=== PATIENT | male | born 1960 | race Two or more races ===

== ENCOUNTER 2016-04-18 20:13 | Inpatient (IN) | payer MEDICARE, MEDICAID ==
[2016-04-18 20:33] VITALS: BP 127/76
[2016-04-18] MEDS ORDERED: Ipratropium Neb 0.5 mg/2.5 mL UD IH PRN (20:52)
[2016-04-18] MEDS ORDERED: Maalox 30 mL Cup PO PRN (20:52)
[2016-04-18] MEDS ORDERED: Albuterol Nebulizer 2.5mg/3mL IH PRN (20:52)
[2016-04-18] MEDS ORDERED: Potassium Chloride 20 mEq ER Tab PO ONE ×2 (20:52→21:20)
[2016-04-18] MEDS: Morphine Sulfate 2 mg/mL 1mL Syr IVP PRN (21:25)
[2016-04-18 22:39] LABS: URINE BILIRUBIN SMALL (NEGATIVE); URINE COLOR ORANGE; URINE GLUCOSE (UA) NEGATIVE (NEGATIVE); URINE KETONE TRACE mg/dL (NEGATIVE)
[2016-04-18 22:40] LABS: URINE BACTERIA OCCASIONAL /hpf (NONE SEEN); URINE BLOOD NEGATIVE (NEGATIVE); URINE EPITHELIAL CELLS OCCASIONAL /lpf (FEW); URINE PH 5.5; URINE PROTEIN 30 mg/dL (NEGATIVE); URINE RBC 0-2 /hpf (0-5); URINE WBC 0-2 /hpf (0-5)
[2016-04-19] MEDS: Morphine Sulfate 2 mg/mL 1mL Syr IVP PRN ×6 (01:35→22:41)
[2016-04-19 05:31] LABS: INR 1.19 (0.5-1.4); PROTHROMBIN TIME (TEST) 11.9 SECONDS (9.5-11.5)
[2016-04-19 05:37] LABS: ALB/GLOB RATIO 0.9 (1.0-1.8); ALKALINE PHOSPHATASE 159 U/L (34-104); ANION GAP 5.5 (7.0-16.0); BUN - UREA NITROGEN 22 mg/dL (7-25); BUN/CREATININE RATIO 36.7; CALCIUM SERUM 8.1 mg/dL (8.6-10.3); CARBON DIOXIDE 23.3 mEq/L (21.0-31.0); CHLORIDE 111 mEq/L (98-107); CREATININE - SERUM 0.6 mg/dL (0.7-1.3); GLUCOSE 114 mg/dL (70-105); POTASSIUM SERUM 3.8 mEq/L (3.5-5.1); SGOT 50 U/L (13-39); SGPT/ALT 24 U/L (7-52); SODIUM SERUM 136 mEq/L (136-145)
[2016-04-19 06:25] LABS: MEAN CORPUSCULAR HEMOGLOBIN 21.4 pg (26.0-30.0); MEAN CORPUSCULAR HGB CONC 31.7 pg (28.0-36.0); RED BLOOD COUNT 3.27 Mil/cmm (4.30-5.70)
[2016-04-19 06:29] LABS: HEMATOCRIT 22.1 % (39.0-49.0); MEAN CELL VOLUME 67.5 fl (80-99)
[2016-04-19 06:33] LABS: BNP 16.4 pg/mL (5.0-100.0)
[2016-04-19 06:38] LABS: TSH 3.46 uIU/ml (0.34-5.60)
[2016-04-19 07:56] LABS: PLATELET COUNT 52 Th/cmm (150-400)
[2016-04-19 08:00] LABS: BAND NEUTROPHILE 2 % (0-10); BASOPHIL 3 % (0-3); EOSINOPHIL 2 % (0-5); NEUTROPHILS 55 % (40-80); TOTAL CELLS COUNTED 100
[2016-04-19 08:01] LABS: ANISOCYTOSIS 1+; HYPOCHROMIA 1+; MICROCYTOSIS 3+; PLATELET ESTIMATE DECREASED PLATELETS (NORMAL); PLATELET MORPHOLOGY GIANT PLATELETS SEEN (NORMAL); POLYCHROMASIA 1+
[2016-04-19] MEDS: Potassium Chloride 20 mEq ER Tab PO SCH (08:15)
--- NOTE | 2016-04-19 09:54 | Diagnostic Imaging Report ---
CHEST X-RAY: AP view INDICATION: Pneumonia COMPARISON: None FINDINGS: Low lung volumes are seen. No focal consolidation or pleural effusions. Heart size is normal. Osseous structures are intact. IMPRESSION: Low lung volumes. No focal consolidation identified.
--- NOTE | 2016-04-19 11:48 | Diagnostic Imaging Report ---
Ultrasound abdomen HISTORY: Cirrhosis, provided history of cholecystectomy COMPARISON: None Technique: Sonography of the abdomen was performed in multiple planes. FINDINGS: Exam is limited due to bowel gas. The liver demonstrates increased echogenicity with irregular borders. The liver measures 13 cm. No obvious focal lesions identified. The gallbladder was not visualized. The common bile duct measures 9 mm. Assessment of the pancreas is limited due to bowel gas. The right kidney measures 12.3 cm. The left kidney measures 11.5 cm. No evidence of focal lesions or hydronephrosis. The spleen is enlarged measuring 17 cm. Moderate amount of ascites is noted, greatest within the upper abdomen. IMPRESSION: Moderate ascites greatest along the upper abdomen. Splenomegaly. Mild decreased liver size with irregular borders which may reflect underlying cirrhotic changes. Nonvisualization of the gallbladder compatible patient's clinical history of cholecystectomy. The common bile duct measures 9 mm, prominent for patient's age but may be related to patient's cholecystectomy procedure. Consider follow-up with indicated.
--- NOTE | 2016-04-19 14:26 | Internal Medicine Prog Note ---
Internal Medicine Subjective - Subjective Service Date: 04/19/16 ([id number]) Internal Medicine Objective - Results Result Diagrams: 04/19/16 05:59 04/19/16 04:49 Recent Labs: Laboratory Last Values WBC 2.0 Th/cmm (4.8-10.8) L* 04/19/16 05:59 RBC 3.27 Mil/cmm (4.30-5.70) L 04/19/16 05:59 Hgb 7.0 gm/dL (13.2-17.3) L* 04/19/16 05:59 Hct 22.1 % (39.0-49.0) L* 04/19/16 05:59 MCV 67.5 fl (80-99) L 04/19/16 05:59 MCH 21.4 pg (26.0-30.0) L 04/19/16 05:59 MCHC Differential 31.7 pg (28.0-36.0) 04/19/16 05:59 RDW 21.0 % (11.5-20.0) H 04/19/16 05:59 Plt Count 52 Th/cmm (150-400) L 04/19/16 05:59 MPV 10.0 fl 04/19/16 05:59 Band Neutrophils % 2 % (0-10) 04/19/16 05:59 Neutrophils (Manual) 55 % (40-80) 04/19/16 05:59 Lymphocytes 28 % (20-50) 04/19/16 05:59 Monocytes 10 % (2-10) 04/19/16 05:59 Eosinophils 2 % (0-5) 04/19/16 05:59 Basophils 3 % (0-3) 04/19/16 05:59 Smudge Cells 1+ 04/19/16 05:59 Hypochromia 1+ 04/19/16 05:59 Platelet Estimate DECREASED PLATELETS (NORMAL) 04/19/16 05:59 Platelet Morphology GIANT PLATELETS SEEN (NORMAL) 04/19/16 05:59 Polychromasia 1+ 04/19/16 05:59 Anisocytosis 1+ 04/19/16 05:59 Microcytosis 3+ 04/19/16 05:59 RBC Morph Micro Appear ABNORMAL (NORMAL) 04/19/16 05:59 PT 11.9 SECONDS (9.5-11.5) H 04/19/16 04:49 INR 1.19 (0.5-1.4) 04/19/16 04:49 PTT (Actin FS) 29.8 SECONDS (26.0-38.0) 04/19/16 04:49 Sodium 136 mEq/L (136-145) 04/19/16 04:49 Potassium 3.8 mEq/L (3.5-5.1) 04/19/16 04:49 Chloride 111 mEq/L (98-107) H 04/19/16 04:49 Carbon Dioxide 23.3 mEq/L (21.0-31.0) 04/19/16 04:49 Anion Gap 5.5 (7.0-16.0) L 04/19/16 04:49 BUN 22 mg/dL (7-25) 04/19/16 04:49 Creatinine 0.6 mg/dL (0.7-1.3) L 04/19/16 04:49 Est GFR ( Amer) > 60.0 ml/min 04/19/16 04:49 Est GFR (Non-Af Amer) > 60.0 ml/min 04/19/16 04:49 BUN/Creatinine Ratio 36.7 04/19/16 04:49 Glucose 114 mg/dL (70-105) H 04/19/16 04:49 Calcium 8.1 mg/dL (8.6-10.3) L 04/19/16 04:49 Magnesium 2.0 mg/dL (1.9-2.7) 04/19/16 04:49 Total Bilirubin 1.0 mg/dL (0.3-1.0) 04/19/16 04:49 AST 50 U/L (13-39) H 04/19/16 04:49 ALT 24 U/L (7-52) 04/19/16 04:49 Alkaline Phosphatase 159 U/L (34-104) H 04/19/16 04:49 Ammonia 101 umol/L (16-53) H 04/19/16 04:49 B-Natriuretic Peptide 16.4 pg/mL (5.0-100.0) 04/19/16 04:49 Total Protein 5.7 gm/dL (6.0-8.3) L 04/19/16 04:49 Albumin 2.7 gm/dL (4.2-5.5) L 04/19/16 04:49 Globulin 3.0 gm/dL 04/19/16 04:49 Albumin/Globulin Ratio 0.9 (1.0-1.8) L 04/19/16 04:49 TSH 3.46 uIU/ml (0.34-5.60) 04/19/16 04:49 Urine Source CLEAN C 04/18/16 21:30 Urine Color ORANGE 04/18/16 21:30 Urine Clarity HAZY (CLEAR) 04/18/16 21:30 Urine pH 5.5 04/18/16 21:30 Ur Specific [place] 1.72887 (1.005-1.030) H 04/18/16 21:30 Urine Protein 30 mg/dL (NEGATIVE) H 04/18/16 21:30 Urine Glucose (UA) NEGATIVE mg/dL (NEGATIVE) 04/18/16 21:30 Urine Ketones TRACE mg/dL (NEGATIVE) 04/18/16 21:30 Urine Blood NEGATIVE (NEGATIVE) 04/18/16 21:30 Urine Nitrate NEGATIVE (NEGATIVE) 04/18/16 21:30 Urine Bilirubin SMALL (NEGATIVE) H 04/18/16 21:30 Urine Ictotest POSITIVE (NEGATIVE) H 04/18/16 21:30 Urine Urobilinogen 1.0 E.U./dL (0.2 - 1.0) 04/18/16 21:30 Ur Leukocyte Esterase NEGATIVE (NEGATIVE) 04/18/16 21:30 Urine RBC 0-2 /hpf (0-5) H 04/18/16 21:30 Urine WBC 0-2 /hpf (0-5) 04/18/16 21:30 Ur Epithelial Cells OCCASIONAL /lpf (FEW) 04/18/16 21:30 Urine Bacteria OCCASIONAL /hpf (NONE SEEN) 04/18/16 21:30 Urine Mucus MODERATE /lpf (FEW) 04/18/16 21:30 HIV 1&2 Antibody Screen NEGATIVE (NEG) 04/19/16 04:49 - Physical Exam Vitals and I&O: Vital Signs Temp 98.1 F 04/19/16 12:00 Pulse 97 04/19/16 12:00 Resp 18 04/19/16 12:00 BP 111/65 04/19/16 12:00 Pulse Ox 96 04/19/16 12:00 Intake & Output 04/18/16 04/19/16 04/19/16 18:59 06:59 18:59 Intake Total 1300 Output Total 500 Balance 800 Weight (lbs) 229 lb Intake: Oral 1300 Output: Urine 500 Other: # Voids 3 Active Medications: Current Medications Acetaminophen (Tylenol) 650 mg PO Q4HR PRN PRN Reason: Pain or Fever >101 Stop: 06/17/16 20:51 Al Hydrox/Mg Hydrox/Simethicone (Maalox) 30 ml PO Q6HR PRN PRN Reason: Constipation Stop: 06/17/16 20:51 Albuterol Sulfate (Albuterol 2.5mg/3ml Neb Ud) 2.5 mg IH Q2HR PRN PRN Reason: Shortness of Breath or Wheeze Stop: 06/17/16 20:51 Furosemide (Lasix) 20 mg IVP BID [facility] Stop: 06/18/16 08:59 Last Admin: 04/19/16 08:16 Dose: 20 mg Ipratropium Martha (Atrovent Neb 0.5mg/2.5ml) 0.5 mg IH Q2HR PRN PRN Reason: Shortness of Breath or Wheeze Stop: 06/17/16 20:51 Meclizine HCl (Antivert) 25 mg PO DAILY PRN PRN Reason: Nausea / Vomiting Stop: 06/17/16 20:51 Morphine Sulfate (Morphine) 2 mg IVP Q4HR PRN PRN Reason: Pain (Severe) Stop: 06/17/16 20:51 Last Admin: 04/19/16 10:07 Dose: 2 mg Neomycin Sulfate (Neomycin) 500 mg PO Q6HR [facility] Stop: 06/18/16 00:00 Last Admin: 04/19/16 05:44 Dose: 500 mg Ondansetron HCl (Zofran) 4 mg IV Q8H PRN PRN Reason: Nausea / Vomiting Stop: 06/17/16 20:51 Potassium Chloride (Klor-Con) 20 meq PO DAILY [facility] Stop: 06/18/16 08:59 Last Admin: 04/19/16 08:15 Dose: 20 meq Spironolactone (Aldactone) 25 mg PO DAILY [facility] Stop: 06/18/16 08:59 Last Admin: 04/19/16 08:15 Dose: 25 mg Zolpidem Tartrate (Ambien) 10 mg PO HS PRN PRN Reason: Insomnia Stop: 06/17/16 20:51 Last Admin: 04/19/16 01:39 Dose: 10 mg Internal Medicine Assmt/Plan - Assessment Assessment: acute hepatic failure abdominal pain anemia
--- NOTE | 2016-04-19 15:47 | History & Physical ---
CHIEF COMPLAINT: Abdominal pain. HISTORY OF PRESENT ILLNESS: This is a 55-year-old male who is a direct admission from [facility]. According to the patient, he has been having a 1-week history of abdominal pain associated with nausea and vomiting and also testicular edema. He denied any pain. The patient also stated that his bilateral legs were also edematous. Denied any pain. The patient states that he has had this problem before, but never sought medical attention. Due to the severity of pain, the patient brought himself to the ER. Due to insurance purposes, the patient is now here at [facility]. PAST MEDICAL HISTORY: Diabetes, hypertension, hyperlipidemia. SOCIAL HISTORY: The patient was a heavy drinker, states that he quit 7 years ago when he was newly diagnosed with diabetes. Denied any tobacco or any drug usage. ALLERGIES: No drug allergies. FAMILY HISTORY: Noncontributory. REVIEW OF SYSTEMS: GENERAL: Denies any fever, any chills. CARDIOVASCULAR: Denies any chest pain. RESPIRATORY: He complains of off and on shortness of breath. GASTROINTESTINAL: Complaints of abdominal pain. Denies any nausea, vomiting at this time. GENITOURINARY: Denies any dysuria. All other systems are reviewed by me are negative. PHYSICAL EXAMINATION: GENERAL: The patient is well developed, well nourished, in no acute distress. VITAL SIGNS: Temperature 98.1, heart rate 97, blood pressure 111/65, respirations 18, O2 96%. HEENT: Head; normocephalic, atraumatic. NECK: Supple. No mass. LUNGS: Few rhonchi bilaterally upon auscultation. HEART: Regular rate and rhythm. No murmurs or gallops. SKIN: Intact, warm and dry to touch. ABDOMEN: Soft, nontender, nondistended. Positive bowel sounds in all 4 quadrants. LABORATORY DATA: WBC 2.0, H and H 7.0 and 22.1. Sodium 136, potassium 3.8, BUN 22, creatinine 0.6, magnesium 2.0. HIV 1 and 2 is negative. DIAGNOSTICS: The patient had a chest x-ray done and the impression is low lung volumes. The patient also had an abdominal ultrasound done and the impression is moderate ascites, greatest along the upper abdomen, splenomegaly. ASSESSMENT: 1. Acute hepatic failure, abdominal pain. 2. History of chronic alcoholism. PLAN: The patient will be admitted to the telemetry unit. The patient will have a consultation with Dr. Snyder. The patient to have ultrasound-guided paracentesis, CA, hepatitis A, B, C panel will be ordered. AFP tumor makers will also be monitored as well. We will continue to monitor the patient. JOB# [id number]
[2016-04-19] MEDS: Lactulose 10 Gm/15 mL 30mL UDC PO SCH (22:41)
--- NOTE | 2016-04-19 23:26 | Admit Criteria Form ---
Admit Criteria Forms - Admit Criteria Diagnosis: LIVER DISEASE COMPLICATIONS Clinical Indications for Admission to Inpatient Care (Place 'X' for any and all applicable criteria): Admission is indicated for patient with ANY ONE of the following(1)(2)(3)(4): [X ]I. Inpatient admission required rather than observation care because of ANY ONE of the following: [ ]a) Hemodynamic instability that is severe or persistent [ ]b) Severe electrolyte abnormalities requiring inpatient care [ ]c) Respiratory compromise that is severe or persistent [ ]d) Coagulation abnormal that is severe or persistent [ ]e) Severe pain requiring acute inpatient management [ ]f) Renal insufficiency that is severe or worsening [ ]g) Metabolic abnormalities (e.g., vomiting, hypoglycemia, acidosis) that are severe or persistent [ ]h) Hypovolemia or hypervolemia that is severe or persistent [ ]i) Absent bowel sounds with complete ileus(2) [ ]j) Signs of intestinal obstruction or peritonitis[A] [ ]k) IV fluid to replace significant ongoing losses (>3 L/m2 per day) [ ]l) Continuous IV infusion of anticoagulation, platelet inhibitor, vasoactive, or antiarrhythmic medication [ ]m) Percutaneous or open drainage (e.g., abscess, biliary tract) procedures [ ]n) Parenteral nutrition regimen that must be implemented on inpatient basis [X ]o) Other condition treatment or monitoring requiring inpatient admission [ ]II. Infected hepatic hydrothorax (eg, empyema) [ ]III. Hepatorenal syndrome (eg, elevated. creatinine with adequate volume status and negative evaluation for other cause)(8) [ ]IV. Spontaneous bacterial peritonitis [ ]V. Suspected infected ascites as indicated by ANY ONE of the following: [ ]a) Temp >100 degrees F (37.8 C ) [ ]b) High WBC count [ ]c) Abdominal pain or tenderness not relieved by paracentesis [ ]. New-onset or worsening hepatic encephalopathy(7) [ ]VII. Suspected fulminant hepatic failure (e.g., acute coagulopathy with hepatic encephalopathy or acute elevation of hepatic transaminases to more than 15 times baseline)(4) [ ]VIII. Acute hepatitis (e.g., ALT and AST at least 3 times baseline) with coagulopathy or severe jaundice as indicated by ANY ONE of the following(9)(10): [ ]a) Bilirubin >20 mg/dL (342 moles/L)(11) [ ]b) Acute elevation of PT to >50% above normal or INR >1.5 [ ] IX. Treatment of injury from hepatotoxin (e.g., acetaminophen) that requires inpatient monitoring [ ] X. Acute fatty liver of Extended stay beyond goal length of stay may be needed for(3)(7): [ ]a) Hepatorenal syndrome [ ]b) Severe or persistent hepatic encephalopathy [ ]c) Renal failure due to other causes associated with cirrhosis (e.g., hypovolemia) [ ]d) Severe or persistent coagulation abnormalities [ ]e) Refractory ascites, volume, or electrolyte abnormality [ ]f) Severe or persistent gastroesophageal bleeding [ ]g) Severe infectious or hepatotoxin-induced hepatitis (eg, acetaminophen) [ ]h) Hemodynamic instability that is severe or persistent The original [employer] content created by [employer] has been revised. The portions of the content which have been revised are identified through the use of italic text or in bold, and [facility] has neither reviewed nor approved the modified material. All other unmodified content is copyright [facility]. Please see references footnoted in the original [facility] edition 2016 Admit Criteria Met?: Yes
--- NOTE | 2016-04-20 02:01 | Consultation ---
INPATIENT GI CONSULT REFERRING PHYSICIAN: Dr. Burnett. REASON FOR CONSULTATION: Cirrhosis and ascites. HISTORY OF PRESENT ILLNESS: This is a 55-year-old male who has underlying history of Cirrhosis. He was told this by another physician in [place] and is thought to be due to the consumption of alcohol in the past that was heavy. The patient no longer is consuming alcohol. He presented to the hospital because of increasing abdominal girth and abdominal discomfort. He denies having any nausea, vomiting, GI bleeding, or confusion. PAST MEDICAL HISTORY: Cirrhosis, stemming from alcohol. PAST SURGICAL HISTORY: Cholecystectomy. FAMILY HISTORY: Family ____ to alcoholic cirrhosis. SOCIAL HISTORY: Prior consumer of alcohol. No tobacco or IV drug usage. ALLERGIES: None. CURRENT MEDICATIONS: Tylenol, Maalox, albuterol, Lasix, Antivert, Atrovent, morphine, neomycin, Zofran, Aldactone, and Ambien. REVIEW OF SYSTEMS: Ten-point review of systems was performed and the pertinent positive was the cirrhosis and ascites. All other systems were otherwise negative. PHYSICAL EXAMINATION: VITAL SIGNS: Temperature is 99, breathing at a rate of 20, pulse of 92, blood pressure 129/85, and satting 95%. GENERAL: In no apparent distress. EYES: Anicteric, normal conjunctivae. HEENT: Normocephalic and atraumatic. Moist mucous membranes. NECK: Soft and supple. CHEST: Clear, normal effort. CARDIOVASCULAR: Regular rate and rhythm. ABDOMEN: Soft, nontender, and nondistended. SKIN: Warm and dry. EXTREMITIES: Reveal no cyanosis. PSYCHOLOGICAL: Alert and oriented x 3. LABORATORY DATA: Show a T-bili of 1, AST 50, ALT 24, alkaline phosphatase 159. HIV was negative. INR is 1.19. White count 2, hemoglobin 7, and platelets of 52,000. IMPRESSION: A 55-year-old male with alcoholic cirrhosis presenting with abdominal distention and ascites, likely causing ____ of abdominal discomfort, will likely benefit from paracentesis. The patient does demonstrate pancytopenia and elevated LFTs, which could be attributed to his cirrhosis and abdominal ultrasound can be done as well after a few reports can be checked. The patient also will need an outpatient hepatology followup. The patient can arrange it through his primary doctor. PLAN: 1. Ultrasound and alpha fetoprotein. 2. Abdominal paracentesis. 3. Continue diuretics. Thank you for allowing me to participate. Please call me if you have any questions. JOB# [id number]
[2016-04-20 05:18] LABS: MEAN CORPUSCULAR HEMOGLOBIN 20.9 pg (26.0-30.0); MEAN CORPUSCULAR HGB CONC 31.1 pg (28.0-36.0); PLATELET COUNT 54 Th/cmm (150-400); RED BLOOD COUNT 3.33 Mil/cmm (4.30-5.70); RED CELL DISTRIBUTION WIDTH 20.8 % (11.5-20.0)
[2016-04-20 05:31] LABS: WHITE BLOOD COUNT 2.1 Th/cmm (4.8-10.8)
[2016-04-20 05:32] LABS: HEMATOCRIT 22.4 % (39.0-49.0)
[2016-04-20] MEDS: Morphine Sulfate 2 mg/mL 1mL Syr IVP PRN ×4 (05:32→20:20)
[2016-04-20 05:45] LABS: ANION GAP 4.3 (7.0-16.0); BUN - UREA NITROGEN 19 mg/dL (7-25); CARBON DIOXIDE 24.3 mEq/L (21.0-31.0); CHLORIDE 110 mEq/L (98-107); CREATININE - SERUM 0.5 mg/dL (0.7-1.3); GLUCOSE 114 mg/dL (70-105); POTASSIUM SERUM 3.6 mEq/L (3.5-5.1); SODIUM SERUM 135 mEq/L (136-145)
[2016-04-20 06:58] LABS: MEAN CELL VOLUME 67.3 fl (80-99)
[2016-04-20] MEDS: Lactulose 10 Gm/15 mL 30mL UDC PO SCH ×3 (09:00→20:21)
[2016-04-20 09:06] LABS: ANISOCYTOSIS 1+; EOSINOPHIL 2 % (0-5); MICROCYTOSIS 3+; NEUTROPHILS 56 % (40-80); PLATELET ESTIMATE DECREASED PLATELETS (NORMAL); POIKILOCYTOSIS 1+; TOTAL CELLS COUNTED 100
[2016-04-20 09:08] LABS: PLATELET MORPHOLOGY GIANT PLATELETS SEEN (NORMAL)
--- NOTE | 2016-04-20 09:11 | Diagnostic Imaging Report ---
Ultrasound-guided paracentesis HISTORY: Ascites COMPARISON: None ultrasound abdomen earlier the same day FINDINGS: Informed consent was obtained and sterile techniques were utilized. Using ultrasound guidance, 7.5 liters of ivelisse-colored fluid was drained from the right lower quadrant. The patient tolerated the procedure with no immediate complications. IMPRESSION: Successful ultrasound guided paracentesis as above.
[2016-04-20] MEDS: Potassium Chloride 20 mEq ER Tab PO SCH (09:24)
[2016-04-20 10:18] LABS: FOLIC ACID 14.6 ng/mL (>3.0); HEP B CORE IGM Negative (Negative); HEP C ANTIBODY <0.1 s/co ratio (0.0-0.9)
--- NOTE | 2016-04-20 14:37 | Consultation ---
REASON FOR CONSULTATION: Pancytopenia. REFERRING PHYSICIAN: Dr. Burnett. HISTORY OF PRESENT ILLNESS: The patient is a 55-year-old male who presented with swelling of the lower extremity and abdomen. He is a known heavy drinker in the past with history of cirrhosis. The patient underwent paracentesis, feels better. He continues to be pancytopenic. PAST MEDICAL HISTORY: Cirrhosis, alcoholic liver disease. PAST SURGICAL HISTORY: Cholecystectomy. SOCIAL HISTORY: Former alcohol abuse. MEDICATIONS: Reviewed. PHYSICAL EXAMINATION: GENERAL: He is awake, ambulatory, not in distress, chronically ill looking. VITAL SIGNS: Stable. HEENT: Pale complexion. No mucosal lesions. No peripheral lymphadenopathy. CHEST: Good air entry. ABDOMEN: Soft, fullness and soft. EXTREMITIES: Edema in both lower extremities with ____ skin. LABORATORY DATA: White count 2.1, hemoglobin 7, platelets ____, creatinine 0.5. Liver functions elevated. Ultrasound, liver cirrhosis and splenomegaly. ASSESSMENT AND PLAN: Cirrhosis, splenomegaly and hypersplenism. The patient was offered transfusion of packed red blood cells. He is currently refusing. Anemia workup including iron studies, B12 and folate, stool occult blood will be obtained. CBC will be followed. Alpha fetoprotein was ordered. Thank you Dr. Burnett for opportunity to participate in the care of this interesting case with you. JOB# [id number]
--- NOTE | 2016-04-20 15:39 | Internal Medicine Prog Note ---
Internal Medicine Subjective - Subjective Patient seen and examined:: with staff, chart reviewed Patient is:: awake, verbal, interactive, in bed Patient Complaints of:: congestion Per staff patient is:: poor appetite, other (abd pain) Internal Medicine Objective - Results Result Diagrams: 04/20/16 05:08 04/20/16 05:08 Recent Labs: Laboratory Last Values WBC 2.1 Th/cmm (4.8-10.8) L* 04/20/16 05:08 RBC 3.33 Mil/cmm (4.30-5.70) L 04/20/16 05:08 Hgb 7.0 gm/dL (13.2-17.3) L* 04/20/16 05:08 Hct 22.4 % (39.0-49.0) L* 04/20/16 05:08 MCV 67.3 fl (80-99) L 04/20/16 05:08 MCH 20.9 pg (26.0-30.0) L 04/20/16 05:08 MCHC Differential 31.1 pg (28.0-36.0) 04/20/16 05:08 RDW 20.8 % (11.5-20.0) H 04/20/16 05:08 Plt Count 54 Th/cmm (150-400) L 04/20/16 05:08 MPV 9.0 fl 04/20/16 05:08 Band Neutrophils % 2 % (0-10) 04/19/16 05:59 Neutrophils (Manual) 56 % (40-80) 04/20/16 05:08 Lymphocytes 32 % (20-50) 04/20/16 05:08 Monocytes 10 % (2-10) 04/20/16 05:08 Eosinophils 2 % (0-5) 04/20/16 05:08 Basophils 3 % (0-3) 04/19/16 05:59 Smudge Cells 1+ 04/19/16 05:59 Hypochromia 1+ 04/19/16 05:59 Platelet Estimate DECREASED PLATELETS (NORMAL) 04/20/16 05:08 Platelet Morphology GIANT PLATELETS SEEN (NORMAL) 04/20/16 05:08 Polychromasia 1+ 04/19/16 05:59 Poikilocytosis 1+ 04/20/16 05:08 Anisocytosis 1+ 04/20/16 05:08 Microcytosis 3+ 04/20/16 05:08 RBC Morph Micro Appear ABNORMAL (NORMAL) 04/20/16 05:08 PT 11.9 SECONDS (9.5-11.5) H 04/19/16 04:49 INR 1.19 (0.5-1.4) 04/19/16 04:49 PTT (Actin FS) 29.8 SECONDS (26.0-38.0) 04/19/16 04:49 Sodium 135 mEq/L (136-145) L 04/20/16 05:08 Potassium 3.6 mEq/L (3.5-5.1) 04/20/16 05:08 Chloride 110 mEq/L (98-107) H 04/20/16 05:08 Carbon Dioxide 24.3 mEq/L (21.0-31.0) 04/20/16 05:08 Anion Gap 4.3 (7.0-16.0) L 04/20/16 05:08 BUN 19 mg/dL (7-25) 04/20/16 05:08 Creatinine 0.5 mg/dL (0.7-1.3) L 04/20/16 05:08 Est GFR ( Amer) > 60.0 ml/min 04/20/16 05:08 Est GFR (Non-Af Amer) > 60.0 ml/min 04/20/16 05:08 BUN/Creatinine Ratio 38.0 04/20/16 05:08 Glucose 114 mg/dL (70-105) H 04/20/16 05:08 Calcium 8.0 mg/dL (8.6-10.3) L 04/20/16 05:08 Magnesium 2.0 mg/dL (1.9-2.7) 04/19/16 04:49 Total Bilirubin 1.0 mg/dL (0.3-1.0) 04/19/16 04:49 AST 50 U/L (13-39) H 04/19/16 04:49 ALT 24 U/L (7-52) 04/19/16 04:49 Alkaline Phosphatase 159 U/L (34-104) H 04/19/16 04:49 Ammonia 101 umol/L (16-53) H 04/19/16 04:49 B-Natriuretic Peptide 16.4 pg/mL (5.0-100.0) 04/19/16 04:49 Total Protein 5.7 gm/dL (6.0-8.3) L 04/19/16 04:49 Albumin 2.7 gm/dL (4.2-5.5) L 04/19/16 04:49 Globulin 3.0 gm/dL 04/19/16 04:49 Albumin/Globulin Ratio 0.9 (1.0-1.8) L 04/19/16 04:49 Tumor Marker AFP TNP 04/19/16 17:18 Carcinoembryonic Ag TNP 04/19/16 17:18 Vitamin B12 668 pg/mL (211-946) 04/19/16 04:49 Folic Acid 14.6 ng/mL (>3.0) 04/19/16 04:49 TSH 3.46 uIU/ml (0.34-5.60) 04/19/16 04:49 Urine Source CLEAN C 04/18/16 21:30 Urine Color ORANGE 04/18/16 21:30 Urine Clarity HAZY (CLEAR) 04/18/16 21:30 Urine pH 5.5 04/18/16 21:30 Ur Specific [place] 1.02048 (1.005-1.030) H 04/18/16 21:30 Urine Protein 30 mg/dL (NEGATIVE) H 04/18/16 21:30 Urine Glucose (UA) NEGATIVE mg/dL (NEGATIVE) 04/18/16 21:30 Urine Ketones TRACE mg/dL (NEGATIVE) 04/18/16 21:30 Urine Blood NEGATIVE (NEGATIVE) 04/18/16 21:30 Urine Nitrate NEGATIVE (NEGATIVE) 04/18/16 21:30 Urine Bilirubin SMALL (NEGATIVE) H 04/18/16 21:30 Urine Ictotest POSITIVE (NEGATIVE) H 04/18/16 21:30 Urine Urobilinogen 1.0 E.U./dL (0.2 - 1.0) 04/18/16 21:30 Ur Leukocyte Esterase NEGATIVE (NEGATIVE) 04/18/16 21:30 Urine RBC 0-2 /hpf (0-5) H 04/18/16 21:30 Urine WBC 0-2 /hpf (0-5) 04/18/16 21:30 Ur Epithelial Cells OCCASIONAL /lpf (FEW) 04/18/16 21:30 Urine Bacteria OCCASIONAL /hpf (NONE SEEN) 04/18/16 21:30 Urine Mucus MODERATE /lpf (FEW) 04/18/16 21:30 Hepatitis A IgM Ab Negative (Negative) 04/19/16 04:49 Hep Bs Antigen Negative (Negative) 04/19/16 04:49 Hep B Core IgM Ab Negative (Negative) 04/19/16 04:49 Hepatitis C Antibody <0.1 s/co ratio (0.0-0.9) 04/19/16 04:49 HIV 1&2 Antibody Screen NEGATIVE (NEG) 04/19/16 04:49 Blood Type O NEGATIVE 04/20/16 10:35 Antibody Screen NEGATIVE 04/20/16 10:35 Crossmatch See Detail 04/20/16 10:35 - Physical Exam Vitals and I&O: Vital Signs Temp 98.6 F 04/20/16 12:10 Pulse 85 04/20/16 12:10 Resp 16 04/20/16 14:00 BP 116/78 04/20/16 12:10 Pulse Ox 98 04/20/16 12:10 Intake & Output 04/19/16 04/20/16 04/20/16 18:59 06:59 18:59 Intake Total 1500 Balance 1500 Intake: Oral 1500 Other: # Voids 3 # Bowel Movements 0 Stool Characteristics Soft Liquid Active Medications: Current Medications Acetaminophen (Tylenol) 650 mg PO Q4HR PRN PRN Reason: Pain or Fever >101 Stop: 06/17/16 20:51 Al Hydrox/Mg Hydrox/Simethicone (Maalox) 30 ml PO Q6HR PRN PRN Reason: Constipation Stop: 06/17/16 20:51 Albuterol Sulfate (Albuterol 2.5mg/3ml Neb Ud) 2.5 mg IH Q2HR PRN PRN Reason: Shortness of Breath or Wheeze Stop: 06/17/16 20:51 Furosemide (Lasix) 20 mg IVP BID [facility] Stop: 06/18/16 08:59 Last Admin: 04/20/16 09:25 Dose: 20 mg Ipratropium [place] (Atrovent Neb 0.5mg/2.5ml) 0.5 mg IH Q2HR PRN PRN Reason: Shortness of Breath or Wheeze Stop: 06/17/16 20:51 Lactulose (Cephulac) 30 gm PO TID [facility] Stop: 06/18/16 20:59 Last Admin: 04/20/16 13:27 Dose: 30 gm Meclizine HCl (Antivert) 25 mg PO DAILY PRN PRN Reason: Nausea / Vomiting Stop: 06/17/16 20:51 Morphine Sulfate (Morphine) 2 mg IVP Q4HR PRN PRN Reason: Pain (Severe) Stop: 06/17/16 20:51 Last Admin: 04/20/16 14:28 Dose: 2 mg Neomycin Sulfate (Neomycin) 500 mg PO Q6HR [facility] Stop: 06/18/16 00:00 Last Admin: 04/20/16 11:39 Dose: 500 mg Ondansetron HCl (Zofran) 4 mg IV Q8H PRN PRN Reason: Nausea / Vomiting Stop: 06/17/16 20:51 Potassium Chloride (Klor-Con) 20 meq PO DAILY [facility] Stop: 06/18/16 08:59 Last Admin: 04/20/16 09:24 Dose: 20 meq Spironolactone (Aldactone) 25 mg PO DAILY [facility] Stop: 06/18/16 08:59 Last Admin: 04/20/16 09:24 Dose: 25 mg Zolpidem Tartrate (Ambien) 10 mg PO HS PRN PRN Reason: Insomnia Stop: 06/17/16 20:51 Last Admin: 04/19/16 01:39 Dose: 10 mg General: weak, alert HEENT: NC/AT, PERRLA Neck: Supple, No JVD Lungs: CTAB Cardiovascular: RRR, Normal S1, Normal S2 Abdomen: globular Extremities: excoriation Neurological: no change - Procedures Procedures: Procedures Procedure Code Date ABD PARACENTESIS W/IMAGING 04525 04/18/16 DRAINAGE OF PERITONEAL CAVITY, PERCUTANEOUS APPROACH [id number] 04/18/16 Internal Medicine Assmt/Plan - Assessment Assessment: acute hepatic failure abdominal pain anemia ascites - Plan Plan: sp paracentesis monitor h and h gi for endoscopy dw pt and family dw rn
[2016-04-21] MEDS: Morphine Sulfate 2 mg/mL 1mL Syr IVP PRN ×5 (00:54→22:35)
[2016-04-21 05:33] LABS: MEAN CELL VOLUME 71.3 fl (80-99); MEAN CORPUSCULAR HEMOGLOBIN 23.2 pg (26.0-30.0); MEAN CORPUSCULAR HGB CONC 32.6 pg (28.0-36.0); MEAN PLATELET VOLUME 11.1 fl; PLATELET COUNT 63 Th/cmm (150-400); RED BLOOD COUNT 3.95 Mil/cmm (4.30-5.70); RED CELL DISTRIBUTION WIDTH 22.9 % (11.5-20.0)
[2016-04-21 05:37] LABS: HEMOGLOBIN 9.2 gm/dL (13.2-17.3); WHITE BLOOD COUNT 3.3 Th/cmm (4.8-10.8)
[2016-04-21 05:38] LABS: HEMATOCRIT 28.2 % (39.0-49.0)
[2016-04-21 05:42] LABS: ALB/GLOB RATIO 0.9 (1.0-1.8); ALKALINE PHOSPHATASE 160 U/L (34-104); BILIRUBIN,TOTAL 1.9 mg/dL (0.3-1.0); BUN - UREA NITROGEN 14 mg/dL (7-25); BUN/CREATININE RATIO 23.3; CALCIUM SERUM 8.3 mg/dL (8.6-10.3); CARBON DIOXIDE 24.6 mEq/L (21.0-31.0); CHLORIDE 108 mEq/L (98-107); CREATININE - SERUM 0.6 mg/dL (0.7-1.3); GLUCOSE 102 mg/dL (70-105); POTASSIUM SERUM 3.6 mEq/L (3.5-5.1); SGOT 53 U/L (13-39); SGPT/ALT 26 U/L (7-52); SODIUM SERUM 134 mEq/L (136-145)
[2016-04-21 07:32] LABS: BASOPHIL 2 % (0-3); EOSINOPHIL 2 % (0-5); NEUTROPHILS 57 % (40-80); TOTAL CELLS COUNTED 100
[2016-04-21 07:33] LABS: ANISOCYTOSIS 1+; MICROCYTOSIS 2+; PLATELET ESTIMATE DECREASED PLATELETS (NORMAL); PLATELET MORPHOLOGY GIANT PLATELETS SEEN (NORMAL); POIKILOCYTOSIS 1+
[2016-04-21 08:19] LABS: IRON SATURATION 3 % (15-55); TIBC (LCI) 400 ug/dL (250-450); UIBC 388 ug/dL (111-343)
[2016-04-21] MEDS: Potassium Chloride 20 mEq ER Tab PO SCH (08:21)
[2016-04-21 08:27] LABS: INR 1.21 (0.5-1.4); PROTHROMBIN TIME (TEST) 12.1 SECONDS (9.5-11.5)
[2016-04-21 09:19] LABS: FOLIC ACID 15.5 ng/mL (>3.0)
[2016-04-21] MEDS: Lactulose 10 Gm/15 mL 30mL UDC PO SCH ×3 (09:43→22:20)
--- NOTE | 2016-04-21 10:54 | Pathology Report ---
[id number] Collection date: 04/19/16 Surgeon: Dr. Lore Garcia Specimen Description: Ascites fluid. Gross Description: Received in four glass containers is approximately 3300 mL of cloudy powers-orange fluid. A business services sales representative portion is sent for cytology processing. Microscopic Description: Examination of two cytospins and one cell block shows large numbers of mesothelial cells admixed with inflammatory cells that consist of mostly lymphocytes. Small numbers of atypical cells are also seen that show nuclear enlargement and prominent nucleoli, most of which appear to represent reactive mesothelial atypia. There are no glandular or acinar cell structures appreciated. Diagnosis: 1. Mostly reactive mesothelial cells and inflammatory cells, cytology of ascites fluid. 2. A few atypical cells of uncertain significance are also identified (see comment). Comment: The atypia seen in this specimen most likely represents a reactive/ inflammatory change, however additional immunohistochemical testing will be performed to rule out the possibility of malignancy. The results of these specialized studies will be issued as a separate report. These findings are discussed with Dr. Alex Burnett on 04/21/16. Addendum: The results of immunohistochemical studies show no evidence for malignancy. These studies were performed and interpreted by a speciality laboratory (see attached report #[id number] Ean Oswald from [facility]). These findings are discussed with Dr. Alex Burnett on 04/27/16. [facility]# [id number] [facility]
--- NOTE | 2016-04-21 12:47 | Internal Medicine Prog Note ---
Internal Medicine Subjective - Subjective Service Date: 04/21/16 Patient seen and examined:: with staff Patient is:: awake Per staff patient is:: no adverse event Internal Medicine Objective - Results Result Diagrams: 04/21/16 04:55 04/21/16 04:55 Recent Labs: Laboratory Last Values WBC 3.3 Th/cmm (4.8-10.8) L D 04/21/16 04:55 RBC 3.95 Mil/cmm (4.30-5.70) L 04/21/16 04:55 Hgb 9.2 gm/dL (13.2-17.3) L D 04/21/16 04:55 Hct 28.2 % (39.0-49.0) L D 04/21/16 04:55 MCV 71.3 fl (80-99) L 04/21/16 04:55 MCH 23.2 pg (26.0-30.0) L 04/21/16 04:55 MCHC Differential 32.6 pg (28.0-36.0) 04/21/16 04:55 RDW 22.9 % (11.5-20.0) H 04/21/16 04:55 Plt Count 63 Th/cmm (150-400) L 04/21/16 04:55 MPV 11.1 fl 04/21/16 04:55 Band Neutrophils % 2 % (0-10) 04/19/16 05:59 Neutrophils (Manual) 57 % (40-80) 04/21/16 04:55 Lymphocytes 29 % (20-50) 04/21/16 04:55 Monocytes 7 % (2-10) 04/21/16 04:55 Eosinophils 2 % (0-5) 04/21/16 04:55 Basophils 2 % (0-3) 04/21/16 04:55 Atypical Lymphocytes 3 % 04/21/16 04:55 Smudge Cells 1+ 04/19/16 05:59 Hypochromia 1+ 04/19/16 05:59 Platelet Estimate DECREASED PLATELETS (NORMAL) 04/21/16 04:55 Platelet Morphology GIANT PLATELETS SEEN (NORMAL) 04/21/16 04:55 Polychromasia 1+ 04/19/16 05:59 Poikilocytosis 1+ 04/21/16 04:55 Anisocytosis 1+ 04/21/16 04:55 Microcytosis 2+ 04/21/16 04:55 RBC Morph Micro Appear ABNORMAL (NORMAL) 04/21/16 04:55 PT 12.1 SECONDS (9.5-11.5) H 04/21/16 04:55 INR 1.21 (0.5-1.4) 04/21/16 04:55 PTT (Actin FS) 30.5 SECONDS (26.0-38.0) 04/21/16 04:55 Sodium 134 mEq/L (136-145) L 04/21/16 04:55 Potassium 3.6 mEq/L (3.5-5.1) 04/21/16 04:55 Chloride 108 mEq/L (98-107) H 04/21/16 04:55 Carbon Dioxide 24.6 mEq/L (21.0-31.0) 04/21/16 04:55 Anion Gap 5.0 (7.0-16.0) L 04/21/16 04:55 BUN 14 mg/dL (7-25) 04/21/16 04:55 Creatinine 0.6 mg/dL (0.7-1.3) L 04/21/16 04:55 Est GFR ( Amer) > 60.0 ml/min 04/21/16 04:55 Est GFR (Non-Af Amer) > 60.0 ml/min 04/21/16 04:55 BUN/Creatinine Ratio 23.3 04/21/16 04:55 Glucose 102 mg/dL (70-105) 04/21/16 04:55 Calcium 8.3 mg/dL (8.6-10.3) L 04/21/16 04:55 Magnesium 2.0 mg/dL (1.9-2.7) 04/19/16 04:49 Iron 12 ug/dL (38-169) L 04/20/16 10:35 TIBC 400 ug/dL (250-450) 04/20/16 10:35 Iron Saturation 3 % (15-55) L 04/20/16 10:35 Unsaturated IBC 388 ug/dL (111-343) H 04/20/16 10:35 Ferritin 8 ng/mL (30-400) L 04/20/16 10:35 Total Bilirubin 1.9 mg/dL (0.3-1.0) H 04/21/16 04:55 AST 53 U/L (13-39) H 04/21/16 04:55 ALT 26 U/L (7-52) 04/21/16 04:55 Alkaline Phosphatase 160 U/L (34-104) H 04/21/16 04:55 Ammonia 101 umol/L (16-53) H 04/19/16 04:49 B-Natriuretic Peptide 16.4 pg/mL (5.0-100.0) 04/19/16 04:49 Total Protein 5.9 gm/dL (6.0-8.3) L 04/21/16 04:55 Albumin 2.8 gm/dL (4.2-5.5) L 04/21/16 04:55 Globulin 3.1 gm/dL 04/21/16 04:55 Albumin/Globulin Ratio 0.9 (1.0-1.8) L 04/21/16 04:55 Tumor Marker AFP TNP 04/19/16 17:18 Carcinoembryonic Ag TNP 04/19/16 17:18 Vitamin B12 601 pg/mL (211-946) 04/20/16 10:35 Folic Acid 15.5 ng/mL (>3.0) 04/20/16 10:35 TSH 3.46 uIU/ml (0.34-5.60) 04/19/16 04:49 Urine Source CLEAN C 04/18/16 21:30 Urine Color ORANGE 04/18/16 21:30 Urine Clarity HAZY (CLEAR) 04/18/16 21:30 Urine pH 5.5 04/18/16 21:30 Ur Specific [place] 1.87654 (1.005-1.030) H 04/18/16 21:30 Urine Protein 30 mg/dL (NEGATIVE) H 04/18/16 21:30 Urine Glucose (UA) NEGATIVE mg/dL (NEGATIVE) 04/18/16 21:30 Urine Ketones TRACE mg/dL (NEGATIVE) 04/18/16 21:30 Urine Blood NEGATIVE (NEGATIVE) 04/18/16 21:30 Urine Nitrate NEGATIVE (NEGATIVE) 04/18/16 21:30 Urine Bilirubin SMALL (NEGATIVE) H 04/18/16 21:30 Urine Ictotest POSITIVE (NEGATIVE) H 04/18/16 21:30 Urine Urobilinogen 1.0 E.U./dL (0.2 - 1.0) 04/18/16 21:30 Ur Leukocyte Esterase NEGATIVE (NEGATIVE) 04/18/16 21:30 Urine RBC 0-2 /hpf (0-5) H 04/18/16 21:30 Urine WBC 0-2 /hpf (0-5) 04/18/16 21:30 Ur Epithelial Cells OCCASIONAL /lpf (FEW) 04/18/16 21:30 Urine Bacteria OCCASIONAL /hpf (NONE SEEN) 04/18/16 21:30 Urine Mucus MODERATE /lpf (FEW) 04/18/16 21:30 Hepatitis A IgM Ab Negative (Negative) 04/19/16 04:49 Hep Bs Antigen Negative (Negative) 04/19/16 04:49 Hep B Core IgM Ab Negative (Negative) 04/19/16 04:49 Hepatitis C Antibody <0.1 s/co ratio (0.0-0.9) 04/19/16 04:49 HIV 1&2 Antibody Screen NEGATIVE (NEG) 04/19/16 04:49 Blood Type O NEGATIVE 04/20/16 10:35 Antibody Screen NEGATIVE 04/20/16 10:35 Crossmatch See Detail 04/20/16 10:35 - Physical Exam Vitals and I&O: Vital Signs Temp 98.5 F 04/21/16 12:03 Pulse 84 04/21/16 12:03 Resp 18 04/21/16 12:03 BP 136/75 04/21/16 12:03 Pulse Ox 99 04/21/16 12:03 Intake & Output 04/20/16 04/21/16 04/21/16 18:59 06:59 18:59 Intake Total 2150 300 Balance 2150 300 Intake: Oral 1800 300 Blood Product 250 Other 100 Other: # Voids 4 2 # Bowel Movements 1 0 Stool Characteristics Soft Soft Liquid Liquid Active Medications: Current Medications Acetaminophen (Tylenol) 650 mg PO Q4HR PRN PRN Reason: Pain or Fever >101 Stop: 06/17/16 20:51 Al Hydrox/Mg Hydrox/Simethicone (Maalox) 30 ml PO Q6HR PRN PRN Reason: Constipation Stop: 06/17/16 20:51 Albuterol Sulfate (Albuterol 2.5mg/3ml Neb Ud) 2.5 mg IH Q2HR PRN PRN Reason: Shortness of Breath or Wheeze Stop: 06/17/16 20:51 Furosemide (Lasix) 20 mg IVP BID [facility] Stop: 06/18/16 08:59 Last Admin: 04/21/16 08:22 Dose: 20 mg Ipratropium [place] (Atrovent Neb 0.5mg/2.5ml) 0.5 mg IH Q2HR PRN PRN Reason: Shortness of Breath or Wheeze Stop: 06/17/16 20:51 Lactulose (Cephulac) 30 gm PO TID [facility] Stop: 06/18/16 20:59 Last Admin: 04/21/16 09:43 Dose: 30 gm Meclizine HCl (Antivert) 25 mg PO DAILY PRN PRN Reason: Nausea / Vomiting Stop: 06/17/16 20:51 Morphine Sulfate (Morphine) 2 mg IVP Q4HR PRN PRN Reason: Pain (Severe) Stop: 06/17/16 20:51 Last Admin: 04/21/16 11:28 Dose: 2 mg Neomycin Sulfate (Neomycin) 500 mg PO Q6HR [facility] Stop: 06/18/16 00:00 Last Admin: 04/21/16 11:28 Dose: 500 mg Ondansetron HCl (Zofran) 4 mg IV Q8H PRN PRN Reason: Nausea / Vomiting Stop: 06/17/16 20:51 Potassium Chloride (Klor-Con) 20 meq PO DAILY [facility] Stop: 06/18/16 08:59 Last Admin: 04/21/16 08:21 Dose: 20 meq Spironolactone (Aldactone) 25 mg PO DAILY [facility] Stop: 06/18/16 08:59 Last Admin: 04/21/16 08:22 Dose: 25 mg Zolpidem Tartrate (Ambien) 10 mg PO HS PRN PRN Reason: Insomnia Stop: 06/17/16 20:51 Last Admin: 04/19/16 01:39 Dose: 10 mg General: alert HEENT: NC/AT, PERRLA Neck: Supple Lungs: CTAB Cardiovascular: RRR, Normal S1, Normal S2, without murmur Abdomen: soft non-tender, non-distended, positive bowel sound Neurological: no change - Procedures Procedures: Procedures Procedure Code Date ABD PARACENTESIS W/IMAGING 55043 04/18/16 DRAINAGE OF PERITONEAL CAVITY, PERCUTANEOUS APPROACH [id number] 04/18/16 Internal Medicine Assmt/Plan - Assessment Assessment: acute hepatic failure abdominal pain anemia ascites - Plan Plan: ct guided guided biopsy liver to be done monitor h/h continue current plan of care
[2016-04-22] MEDS: Morphine Sulfate 2 mg/mL 1mL Syr IVP PRN ×4 (02:49→16:41)
[2016-04-22 05:23] LABS: HEMOGLOBIN 8.9 gm/dL (13.2-17.3); MEAN CELL VOLUME 70.8 fl (80-99); MEAN CORPUSCULAR HEMOGLOBIN 22.5 pg (26.0-30.0); MEAN CORPUSCULAR HGB CONC 31.8 pg (28.0-36.0); RED CELL DISTRIBUTION WIDTH 22.9 % (11.5-20.0); WHITE BLOOD COUNT 2.9 Th/cmm (4.8-10.8)
[2016-04-22 05:52] LABS: ALB/GLOB RATIO 0.9 (1.0-1.8); ALKALINE PHOSPHATASE 168 U/L (34-104); ANION GAP 4.7 (7.0-16.0); BUN - UREA NITROGEN 13 mg/dL (7-25); BUN/CREATININE RATIO 21.7; CALCIUM SERUM 8.3 mg/dL (8.6-10.3); CARBON DIOXIDE 24.9 mEq/L (21.0-31.0); CHLORIDE 110 mEq/L (98-107); CREATININE - SERUM 0.6 mg/dL (0.7-1.3); GLUCOSE 117 mg/dL (70-105); POTASSIUM SERUM 3.6 mEq/L (3.5-5.1); SGOT 58 U/L (13-39); SGPT/ALT 29 U/L (7-52); SODIUM SERUM 136 mEq/L (136-145)
[2016-04-22 06:05] LABS: HEMATOCRIT 27.8 % (39.0-49.0); MEAN PLATELET VOLUME 11.2 fl; PLATELET COUNT 62 Th/cmm (150-400); RED BLOOD COUNT 3.92 Mil/cmm (4.30-5.70)
[2016-04-22 06:53] LABS: TOTAL CELLS COUNTED 100
[2016-04-22 06:54] LABS: BAND NEUTROPHILE 0 % (0-10)
[2016-04-22 06:55] LABS: ANISOCYTOSIS 1+; NEUTROPHILS 51 % (40-80); PLATELET ESTIMATE DECREASED PLATELETS (NORMAL)
[2016-04-22 06:56] LABS: MICROCYTOSIS 1+
[2016-04-22] MEDS: Lactulose 10 Gm/15 mL 30mL UDC PO SCH ×2 (08:46→14:00)
[2016-04-22] MEDS: Potassium Chloride 20 mEq ER Tab PO SCH (08:46)
--- NOTE | 2016-04-22 10:13 | Internal Medicine Prog Note ---
Internal Medicine Subjective - Subjective Patient seen and examined:: with staff, chart reviewed Patient is:: awake, verbal, interactive, in bed, denies any new complaints Per staff patient is:: no adverse event Internal Medicine Objective - Results Result Diagrams: 04/22/16 04:45 04/22/16 04:45 Recent Labs: Laboratory Last Values WBC 2.9 Th/cmm (4.8-10.8) L 04/22/16 04:45 RBC 3.92 Mil/cmm (4.30-5.70) L 04/22/16 04:45 Hgb 8.9 gm/dL (13.2-17.3) L 04/22/16 04:45 Hct 27.8 % (39.0-49.0) L 04/22/16 04:45 MCV 70.8 fl (80-99) L 04/22/16 04:45 MCH 22.5 pg (26.0-30.0) L 04/22/16 04:45 MCHC Differential 31.8 pg (28.0-36.0) 04/22/16 04:45 RDW 22.9 % (11.5-20.0) H 04/22/16 04:45 Plt Count 62 Th/cmm (150-400) L 04/22/16 04:45 MPV 11.2 fl 04/22/16 04:45 Band Neutrophils % 0 % (0-10) 04/22/16 04:45 Neutrophils (Manual) 51 % (40-80) 04/22/16 04:45 Lymphocytes 42 % (20-50) 04/22/16 04:45 Monocytes 7 % (2-10) 04/22/16 04:45 Eosinophils 2 % (0-5) 04/21/16 04:55 Basophils 2 % (0-3) 04/21/16 04:55 Atypical Lymphocytes 3 % 04/21/16 04:55 Smudge Cells 1+ 04/19/16 05:59 Hypochromia 1+ 04/19/16 05:59 Platelet Estimate DECREASED PLATELETS (NORMAL) 04/22/16 04:45 Platelet Morphology GIANT PLATELETS SEEN (NORMAL) 04/21/16 04:55 Polychromasia 1+ 04/19/16 05:59 Poikilocytosis 1+ 04/21/16 04:55 Anisocytosis 1+ 04/22/16 04:45 Microcytosis 1+ 04/22/16 04:45 RBC Morph Micro Appear ABNORMAL (NORMAL) 04/22/16 04:45 PT 12.1 SECONDS (9.5-11.5) H 04/21/16 04:55 INR 1.21 (0.5-1.4) 04/21/16 04:55 PTT (Actin FS) 30.5 SECONDS (26.0-38.0) 04/21/16 04:55 Sodium 136 mEq/L (136-145) 04/22/16 04:45 Potassium 3.6 mEq/L (3.5-5.1) 04/22/16 04:45 Chloride 110 mEq/L (98-107) H 04/22/16 04:45 Carbon Dioxide 24.9 mEq/L (21.0-31.0) 04/22/16 04:45 Anion Gap 4.7 (7.0-16.0) L 04/22/16 04:45 BUN 13 mg/dL (7-25) 04/22/16 04:45 Creatinine 0.6 mg/dL (0.7-1.3) L 04/22/16 04:45 Est GFR ( Amer) > 60.0 ml/min 04/22/16 04:45 Est GFR (Non-Af Amer) > 60.0 ml/min 04/22/16 04:45 BUN/Creatinine Ratio 21.7 04/22/16 04:45 Glucose 117 mg/dL (70-105) H 04/22/16 04:45 Calcium 8.3 mg/dL (8.6-10.3) L 04/22/16 04:45 Magnesium 2.0 mg/dL (1.9-2.7) 04/19/16 04:49 Iron 12 ug/dL (38-169) L 04/20/16 10:35 TIBC 400 ug/dL (250-450) 04/20/16 10:35 Iron Saturation 3 % (15-55) L 04/20/16 10:35 Unsaturated IBC 388 ug/dL (111-343) H 04/20/16 10:35 Ferritin 8 ng/mL (30-400) L 04/20/16 10:35 Total Bilirubin 1.0 mg/dL (0.3-1.0) 04/22/16 04:45 AST 58 U/L (13-39) H 04/22/16 04:45 ALT 29 U/L (7-52) 04/22/16 04:45 Alkaline Phosphatase 168 U/L (34-104) H 04/22/16 04:45 Ammonia 103 umol/L (16-53) H 04/22/16 04:45 B-Natriuretic Peptide 16.4 pg/mL (5.0-100.0) 04/19/16 04:49 Total Protein 5.6 gm/dL (6.0-8.3) L 04/22/16 04:45 Albumin 2.6 gm/dL (4.2-5.5) L 04/22/16 04:45 Globulin 3.0 gm/dL 04/22/16 04:45 Albumin/Globulin Ratio 0.9 (1.0-1.8) L 04/22/16 04:45 Tumor Marker AFP TNP 04/19/16 17:18 Carcinoembryonic Ag TNP 04/19/16 17:18 Vitamin B12 601 pg/mL (211-946) 04/20/16 10:35 Folic Acid 15.5 ng/mL (>3.0) 04/20/16 10:35 TSH 3.46 uIU/ml (0.34-5.60) 04/19/16 04:49 Urine Source CLEAN C 04/18/16 21:30 Urine Color ORANGE 04/18/16 21:30 Urine Clarity HAZY (CLEAR) 04/18/16 21:30 Urine pH 5.5 04/18/16 21:30 Ur Specific [place] 1.20722 (1.005-1.030) H 04/18/16 21:30 Urine Protein 30 mg/dL (NEGATIVE) H 04/18/16 21:30 Urine Glucose (UA) NEGATIVE mg/dL (NEGATIVE) 04/18/16 21:30 Urine Ketones TRACE mg/dL (NEGATIVE) 04/18/16 21:30 Urine Blood NEGATIVE (NEGATIVE) 04/18/16 21:30 Urine Nitrate NEGATIVE (NEGATIVE) 04/18/16 21:30 Urine Bilirubin SMALL (NEGATIVE) H 04/18/16 21:30 Urine Ictotest POSITIVE (NEGATIVE) H 04/18/16 21:30 Urine Urobilinogen 1.0 E.U./dL (0.2 - 1.0) 04/18/16 21:30 Ur Leukocyte Esterase NEGATIVE (NEGATIVE) 04/18/16 21:30 Urine RBC 0-2 /hpf (0-5) H 04/18/16 21:30 Urine WBC 0-2 /hpf (0-5) 04/18/16 21:30 Ur Epithelial Cells OCCASIONAL /lpf (FEW) 04/18/16 21:30 Urine Bacteria OCCASIONAL /hpf (NONE SEEN) 04/18/16 21:30 Urine Mucus MODERATE /lpf (FEW) 04/18/16 21:30 Hepatitis A IgM Ab Negative (Negative) 04/19/16 04:49 Hep Bs Antigen Negative (Negative) 04/19/16 04:49 Hep B Core IgM Ab Negative (Negative) 04/19/16 04:49 Hepatitis C Antibody <0.1 s/co ratio (0.0-0.9) 04/19/16 04:49 HIV 1&2 Antibody Screen NEGATIVE (NEG) 04/19/16 04:49 Blood Type O NEGATIVE 04/20/16 10:35 Antibody Screen NEGATIVE 04/20/16 10:35 Crossmatch See Detail 04/20/16 10:35 - Physical Exam Vitals and I&O: Vital Signs Temp 98 F 04/22/16 08:19 Pulse 81 04/22/16 08:45 Resp 19 04/22/16 08:19 BP 137/85 04/22/16 08:46 Pulse Ox 96 04/22/16 08:19 Intake & Output 04/21/16 04/22/16 04/22/16 18:59 06:59 18:59 Intake Total 1600 300 Balance 1600 300 Intake: Oral 1600 300 Other: # Voids 3 2 # Bowel Movements 0 0 Stool Characteristics Soft Soft Liquid Liquid Active Medications: Current Medications Acetaminophen (Tylenol) 650 mg PO Q4HR PRN PRN Reason: Pain or Fever >101 Stop: 06/17/16 20:51 Al Hydrox/Mg Hydrox/Simethicone (Maalox) 30 ml PO Q6HR PRN PRN Reason: Constipation Stop: 06/17/16 20:51 Albuterol Sulfate (Albuterol 2.5mg/3ml Neb Ud) 2.5 mg IH Q2HR PRN PRN Reason: Shortness of Breath or Wheeze Stop: 06/17/16 20:51 Furosemide (Lasix) 20 mg IVP BID ANNIE Stop: 06/18/16 08:59 Last Admin: 04/22/16 08:46 Dose: 20 mg Ipratropium [place] (Atrovent Neb 0.5mg/2.5ml) 0.5 mg IH Q2HR PRN PRN Reason: Shortness of Breath or Wheeze Stop: 06/17/16 20:51 Lactulose (Cephulac) 30 gm PO TID ANNIE Stop: 06/18/16 20:59 Last Admin: 04/22/16 08:46 Dose: 30 gm Meclizine HCl (Antivert) 25 mg PO DAILY PRN PRN Reason: Nausea / Vomiting Stop: 06/17/16 20:51 Morphine Sulfate (Morphine) 2 mg IVP Q4HR PRN PRN Reason: Pain (Severe) Stop: 06/17/16 20:51 Last Admin: 04/22/16 07:02 Dose: 2 mg Neomycin Sulfate (Neomycin) 500 mg PO Q6HR [facility] Stop: 06/18/16 00:00 Last Admin: 04/22/16 05:44 Dose: 500 mg Ondansetron HCl (Zofran) 4 mg IV Q8H PRN PRN Reason: Nausea / Vomiting Stop: 06/17/16 20:51 Potassium Chloride (Klor-Con) 20 meq PO DAILY [facility] Stop: 06/18/16 08:59 Last Admin: 04/22/16 08:46 Dose: 20 meq Spironolactone (Aldactone) 25 mg PO DAILY [facility] Stop: 06/18/16 08:59 Last Admin: 04/22/16 08:45 Dose: 25 mg Zolpidem Tartrate (Ambien) 10 mg PO HS PRN PRN Reason: Insomnia Stop: 06/17/16 20:51 Last Admin: 04/19/16 01:39 Dose: 10 mg General: alert HEENT: NC/AT, PERRLA Neck: Supple, No JVD Lungs: CTAB Cardiovascular: RRR, Normal S1, Normal S2 Abdomen: soft non-tender, globular, distended Extremities: edema, excoriation Neurological: no change - Procedures Procedures: Procedures Procedure Code Date ABD PARACENTESIS W/IMAGING 27606 04/18/16 DRAINAGE OF PERITONEAL CAVITY, PERCUTANEOUS APPROACH [id number] 04/18/16 Internal Medicine Assmt/Plan - Assessment Assessment: acute hepatic failure abdominal pain anemia ascites - Plan Plan: sp paracentesis monitor h and h gi for endoscopy dw pt and family dw rn see dc instruction
--- NOTE | 2016-04-22 12:03 | Diagnostic Imaging Report ---
Abdominal ultrasound (Limited) HISTORY: Ascites Sonographic sector images provided for assessment of ascites. The exam demonstrates moderate to large amount of ascites within the right and left abdominal regions. Intra-abdominal organs not evaluated at this time. IMPRESSION: Ascites
[2016-04-22 12:42] LABS: BF NEUTROPHILES 10 %
--- NOTE | 2016-04-23 10:10 | Diagnostic Imaging Report ---
Paracentesis (ultrasound-guided) HISTORY: Ascites Using ultrasound guidance and sterile technique, 5.5 L of yellow tinted ascitic fluid was aspirated from the left lower quadrant of the abdomen. The patient tolerated the procedure with no immediate apparent clinical complications. IMPRESSION: Paracentesis as noted above
--- NOTE | 2016-04-25 11:01 | Pathology Report ---
[id number] Collection date: 04/22/2016 Surgeon: Dr. Lore Ryder Specimen Description: Ascites fluid for cytology. Gross Description: Received in a large glass container is approximately 900 mL of cloudy powers-yellow fluid. A customer relations representative portion is sent for cytology processing. Microscopic Description: Examination of two cytospins and one cell block shows mostly inflammatory cells admixed with reactive mesothelial cells. A few of the mesothelial cells show mild nuclear enlargement consistent with a reactive/inflammatory change. Diagnosis: No evidence for malignancy (cytology of ascites fluid). Comment: There is also a prior cytology specimen from 04/19/16 (report [id number]) that was worked up with immunohistochemical studies. The results of these specialized studies show no evidence for malignancy (see attached report #[id number] Ean Oswald of [facility]). JOB# [id number] [facility]
--- NOTE | 2016-05-17 02:26 | Discharge Summary ---
FINAL DIAGNOSES: Acute hepatic failure, abdominal pain, history of chronic alcoholism. HISTORY OF PRESENT ILLNESS: This is a 55-year-old male who has a direct admission from [facility]. According to the patient, he has been having a 1-week history of abdominal pain associated with nausea, vomiting and has testicular edema. Denied any pain. The patient also stated that his bilateral legs were edematous, denied any pain. The patient states that he has had this before, but never sought medical attention. Due to the severity of pain, the patient brought himself to the ER. PHYSICAL EXAMINATION: GENERAL: The patient is well developed, well nourished, in no acute distress. VITAL SIGNS: Stable. HEENT: Head normocephalic, atraumatic. NECK: Supple. No mass. LUNGS: Clear. CARDIOVASCULAR: Regular rate and rhythm. ABDOMEN: Soft, nontender, nondistended. HOSPITAL COURSE: During the hospital stay, the patient was admitted to the telemetry unit. The patient had a consultation with Dr. Snyder. The patient had an ultrasound-guided paracentesis and hepatitis A, B and C panel was ordered and AFB tumor markers are ordered as well. On 04/19/2016, the patient had an abdominal ultrasound and the impression is moderate ascites, greatest along the upper abdomen, splenomegaly. The patient had a consultation with Dr. Veloz and Dr. Veloz's plan of care was to do anemia workup, but the patient was refusing a blood transfusion. The patient had a paracentesis done on 04/22/2016 and the patient had 5.5 liters out. The patient later then stabilized and was stable for discharge. CONDITION UPON DISCHARGE: Fair. DISPOSITION: Going home. The patient to follow up with primary care doctor in 1 week and to see a GI specialist. JOB# [id number]
== END 2016-04-22 17:05 | disposition home or self-care (01) | DRG 432 ==
LOC: TELE 20:13 → MSI 04-19 18:48
PROVIDERS: ADMIT Internal Medicine; ATTEND Internal Medicine
PROC: 0W9G3ZZ Drainage of Peritoneal Cavity, Percutaneous Approach (ICD-10-PCS; principal; 2016-04-19)
PROC: 30233N1 Transfusion of Nonautologous Red Blood Cells into Peripheral Vein, Percutaneous Approach (ICD-10-PCS; 2016-04-20)
PROC: 0W9G3ZZ Drainage of Peritoneal Cavity, Percutaneous Approach (ICD-10-PCS; 2016-04-22)
DX: K70.31 Alcoholic cirrhosis of liver with ascites (principal); K72.00 Acute and subacute hepatic failure without coma; D61.818 Other pancytopenia; D64.9 Anemia, unspecified; I10 Essential (primary) hypertension; E11.9 Type 2 diabetes mellitus without complications; E78.5 Hyperlipidemia, unspecified; D73.1 Hypersplenism; F10.21 Alcohol dependence, in remission; Z90.49 Acquired absence of other specified parts of digestive tract
CPT/HCPCS: 36415-UA; 71010-TC; 76700-TC; 76705-TC; 76942-TC; 80048-TC; 80053-TC; 80074-90; 81001-TC; 82105-90; 82140-TC; 82378-90; 82607-90; 82728-90; 82746-90; 82945-TC; 83540-90; 83550-90; 83735-TC; 83880-TC; 84443-TC; 85007-TC; 85027-TC; 85610-TC; 85730-TC; 86703-TC; 86850-TC; 86900-TC; 86901-TC; 86922-TC; 87070-90; 87075-90; 87205-90; 88162-90; 88305-90; 89051-TC; 94760; J1940; J2270; P9016; Z7610